=== PATIENT | female | born 1955 | race Caucasian/White ===

== ENCOUNTER 2020-04-01 08:49 | Day surgery (SDC) | payer BC ==
[~2020-04-01 08:49] MED LIST: Lactated Ringers 1,000 ML IV SCH; Sodium Chloride 0.9% 10 ML Syringe FLUSH PRN
[2020-04-01] MEDS ORDERED: Lidocaine 1% PF 2 ML SDV IV ONE (08:50)
[2020-04-01] MEDS ORDERED: Propofol 200 MG/20 ML SDV IV ONE (08:50)
--- NOTE | 2020-04-01 10:34 | PCM.OPNOTE ---
- General Post-Op/Procedure Note Date of Surgery/Procedure: 04/01/20 Operative Procedure(s): c scope with cold forcep biopsy Findings: rectal polyp Pre Op Diagnosis: + cologuard Post-Op Diagnosis: rectal polyp Anesthesia Technique: MAC Primary Surgeon: Herson Patel Anesthesia Provider: Lincoln Espinal Pathology: rectal polyp Complications: None Condition: Good Free Text/Narrative:: see dictation
--- NOTE | 2020-04-01 15:18 | OR ---
DATE OF OPERATION: 04/01/2020 SURGEON: Herson Patel MD PROCEDURE PERFORMED: Colonoscopy with cold forceps biopsy. PREOPERATIVE DIAGNOSIS: Positive Cologuard test. POSTOPERATIVE DIAGNOSIS: Rectal polyp. INDICATIONS FOR PROCEDURE: This is a 64-year-old white female who recently underwent a Cologuard test, this came back positive. She presents now for a colonoscopy. DESCRIPTION OF OPERATION: After an excellent IV sedation was administered, digital rectal exam was performed. No marked abnormality was noted. The flexible colonoscope was inserted and advanced to the cecum. The prep was excellent. The following findings were noted: Ascending colon, unremarkable. Transverse colon, unremarkable. Descending colon, unremarkable. Sigmoid, unremarkable. Rectum, approximately 5 cm above the anal verge, small polyp encountered, having an appearance consistent with an adenoma. This was biopsied and obliterated with cold biopsy forceps. It measured approximately 5 mm in diameter. The patient tolerated the procedure well. Results will be sent to her via letter. /[id number] JEANNINE/NILO
== END 2020-04-01 11:15 | disposition home or self-care (01) ==
LOC: FB.SDS 08:49
PROVIDERS: ATTEND Surgery
DX: K62.1 Rectal polyp (principal); Z79.899 Other long term (current) drug therapy; Z88.0 Allergy status to penicillin; Z88.8 Allergy status to other drugs, medicaments and biological substances; Z98.890 Other specified postprocedural states
CPT/HCPCS: 00811; 45380; 88305; J2001; J2704; J7120